=== PATIENT | male | born 1980 | race Caucasian/White ===

== ENCOUNTER → 2024-10-24 | Outpatient (CLI) | payer MEDICARE, MEDICAID ==
[~2024-10-24] MED LIST: ALLERGY SHOTS; AUGMENTIN 875 M1 TAB PO; AUGMENTIN ES-6100 ML PO; CIPRODEX 0.3%-7.5 ML OT; CLARITIN5 MG/5 ML PO; MEDROL DOSEPAK4 MG PO; MOTRIN800 MG PO; NASONEX0.05 MG/AC NS; PHENOBARBITAL60 MG PO; ZITHROMAX Z PA250 MG PO
[2024-10-24 11:31] LABS: BASO # 0.1 10*3/uL (0.0-0.1); BASO % 0.8 % (0.0-1.0); EOS # 0.1 10*3/uL (0.0-0.4); EOS % 1.6 % (1.0-4.0); HEMATOCRIT 47.7 % (42.0-52.0); MEAN CELL VOLUME 85.9 fl (80.0-94.0); MEAN CORPUSCULAR HGB CONC 33.8 g/dl (33.0-37.0); MEAN PLATELET VOLUME 10.6 fl (9.6-12.3); MONO # 0.5 10*3/uL (0.1-1.0); MONO % 7.7 % (3.0-9.0); NEUT # 3.8 10*3/uL (2.3-7.9); NEUT % 62.6 % (47.0-73.0); PLATELET COUNT AUTOMATED 221 10*3/uL (130-400); RED BLOOD COUNT 5.55 10*6/uL (4.50-5.90); RED CELL DISTRI WIDTH 12.5 % (0-14.5); WHITE BLOOD COUNT 6.1 10*3/uL (4.8-10.8)
[2024-10-24 13:37] LABS: BUN 14 mg/dl (9-23); CHLORIDE 104 mmol/L (98-107); POTASSIUM 4.1 mmol/L (3.4-5.1)
== END | disposition home or self-care (01) ==
LOC: LAB 10:49
PROVIDERS: ATTEND Registered Nurse
DX: Z01.818 Encounter for other preprocedural examination (principal); J98.4 Other disorders of lung

== ENCOUNTER → 2024-10-26 | Outpatient (CLI) | payer MEDICARE, MEDICAID | END | disposition home or self-care (01) | LOC: LAB 14:54 | PROVIDERS: ATTEND Internal Medicine | DX: Z01.812 Encounter for preprocedural laboratory examination (principal); I48.0 Paroxysmal atrial fibrillation ==

== ENCOUNTER → 2024-11-21 | Outpatient (CLI) | payer MEDICARE, MEDICAID | END | disposition home or self-care (01) | LOC: RAD 11:24 | PROVIDERS: ATTEND Registered Nurse | DX: J98.4 Other disorders of lung (principal); J18.9 Pneumonia, unspecified organism ==

== ENCOUNTER → 2024-12-07 | Outpatient (CLI) | payer MEDICARE, MEDICAID | END | disposition home or self-care (01) | LOC: RAD 15:04 | PROVIDERS: ATTEND Registered Nurse | DX: J18.1 Lobar pneumonia, unspecified organism (principal) ==